=== PATIENT | male | born 1955 | race Caucasian/White ===

== ENCOUNTER 2016-10-26 14:04 | Emergency (ER) | payer OTHER ==
[~2016-10-26] VITALS: Ht 172.7 cm; Wt 92.0 kg
[~2016-10-26 14:04] MED LIST: A/B OTIC AU; ALTOPREV20 MG PO; BACTRIM DS1 TAB PO; BL ADULT ASA81 MG PO; FLOMAX0.4 M1 PO; FLUARIX QUADRIV1 INJ IM; KAYEXALATE15 GM/60 M PO; LEVAQUIN750 MG PO; LORTAB 7.57.5 MG PO; LOVASTATIN10 M1 PO; LUNESTA3 MG PO; METRONIDAZOL500 MG PO; NEXIUM40 M1 PO; PAROXETINE10 MG PO; PRILOSEC20 MG OR; PROBIOTIC1 TAB; TRAMADOL HCL50 MG; TRAMADOL HCL50 MG PO; ZOLOFT25 MG PO
[2016-10-26] MEDS ORDERED: LIPITOR20 MG PO (14:26)
[2016-10-26] MEDS ORDERED: TRAMADOL HYDROC50 MG PO (14:35)
[2016-10-26] MEDS ORDERED: EC-NAPROSYN500 MG PO (14:35)
[2016-10-26] MEDS ORDERED: FLEXERIL PO (14:35)
[2016-10-26 14:50] VITALS: BP 139/84
== END 2016-10-26 14:50 | disposition home or self-care (01) | DRG 563 ==
LOC: ED 14:04
DX: S39.012A Strain of muscle, fascia and tendon of lower back, initial encounter (principal); X50.1XXA Overexertion from prolonged static or awkward postures, initial encounter; Y92.009 Unspecified place in unspecified non-institutional (private) residence as the place of occurrence of the external cause